=== PATIENT | female | born 1940 | race Caucasian/White ===

== ENCOUNTER 2019-05-08 13:15 | Outpatient (CLI) | payer MEDICARE, OTHER | END 2019-05-08 23:59 | disposition home or self-care (01) | LOC: RAD 13:15 | PROVIDERS: ATTEND Internal Medicine Gastroenterology | DX: R13.14 Dysphagia, pharyngoesophageal phase (principal); K21.9 Gastro-esophageal reflux disease without esophagitis; R49.0 Dysphonia; Z79.899 Other long term (current) drug therapy | CPT/HCPCS: 74230 ==